=== PATIENT | male | born 1980 | race Two or more races ===

== ENCOUNTER 2020-07-19 12:31 | Emergency (ER) | payer SELFPAY ==
[~2020-07-19] VITALS: Ht 165.1 cm; Wt 68.0 kg
--- NOTE | 2020-07-19 12:40 | NUR ---
ED Nurse Note: Pt was brought in by [employer] angela 5150 hold for danger to self. He was found in his car, altered, refusing to speak. The EMS stated taht he was refusing to speak or open the door. They ended up breaking the car window to access the pt. Multiple alcohol bottles were found in the vehicle. The [employer] officer stated that he recently had lost his family and that they had 'left him.' Pt is refusing to answer RN during assesment. Pt is resting comfortably no signs of distress on RA. Vital signs stable as documented
[2020-07-19 12:41] VITALS: BP 160/112
--- NOTE | 2020-07-19 13:00 | Emergency Room Report ---
History of Present Illness General Chief Complaint: Altered Level of Consciousness Source: EMS (Irene Maier) Present Illness HPI 39-year-old male presents to the emergency department brought by police on 5150 hold for danger to self. Patient was found walking in her driveway and refuses to respond to any questions. Patient is alert HPI and ROS are limited. Patient denies pain. Patient denies medical problems. Patient is poorly cooperative. No previous visits here in the ER. No obvious signs of trauma. (Irene Maier) Allergies: Coded Allergies: No Known Allergies (Unverified , 07/19/20) COVID-19 Screening Contact w/high risk pt: No Experienced COVID-19 symptoms?: No COVID-19 Testing performed BAR ASSISTANT: No (Irene Maier) Patient History Past Medical History: see triage record Past Surgical History: none Pertinent Family History: none Reviewed Nursing Documentation: PMH: Agreed; PSxH: Agreed (Irene Maier) Nursing Documentation-PMH Past Medical History: No Stated History (Irene Maier) Review of Systems All Other Systems: negative except mentioned in HPI (Irene Maier) Physical Exam Vital Signs Date Time Temp Pulse Resp B/P (MAP) Pulse Ox O2 Delivery O2 Flow Rate FiO2 07/19/20 12:31 97.9 110 16 160/110 (127) 97 Room Air Sp02 EP Interpretation: reviewed, normal General Appearance: no apparent distress, alert, GCS 15, non-toxic Head: normocephalic, atraumatic Eyes: bilateral eye normal inspection, bilateral eye PERRL, bilateral eye other - no photophobia, ENT: hearing grossly normal, normal voice Neck: full range of motion Respiratory: chest non-tender, lungs clear, normal breath sounds, no accessory muscle use, no wheezing, speaking full sentences Cardiovascular #1: regular rate, rhythm, normal capillary refill, tachycardia Gastrointestinal: normal bowel sounds, non tender, soft Musculoskeletal: back normal, normal range of motion, gait/station normal, non- tender Neurologic: alert, motor strength/tone normal, DTRs symmetric, sensory intact, responsive, speech normal, grossly normal, no focal defects Psychiatric: judgement/insight normal Lymphatic: no adenopathy (Irene Maier) Medical Decision Making PA Attestation Dr. Serrato is my supervising Physician whom patient management has been discussed with. (Irene Maier) Diagnostic Impression: Primary Impression: Behavioral disorder ER Course 39-year-old male presents to the emergency department brought by police on 5150 hold for danger to self. Patient was found walking in her driveway and refuses to respond to any questions. Patient is alert HPI and ROS are limited. Patient denies pain. Patient denies medical problems. Patient is poorly cooperative. No previous visits here in the ER. No obvious signs of trauma. Ddx considered but are not limited to OD, SI/HI, psychosis, UTI, intoxication Vital signs: Pt. is tachycardic on arrival with an elevated BP. remaingin VS are WNL, pt. is afebrile H&PE are most consistent with behavioral/mental health issue-- Non-toxic in appearance, NAD. no obvious focal neurological defects. ORDERS: -CBC, CMP: WNL -UA: negative for infection see results attached. -UDS: POSITIVE FOR AMPHETAMINES -Salicylates and Acetaminophen: WNL -ETOH - no acute intoxication. ED INTERVENTIONS: - Pt. declines clonidine. - Pt. declines Ativan DISPOSITION: Pt. is medically cleared for psychiatric placement. Labs Test 07/19/20 12:50 07/19/20 13:00 07/19/20 13:18 White Blood Count 5.1 K/UL (4.8-10.8) Red Blood Count 5.22 M/UL (4.70-6.10) Hemoglobin 16.5 G/DL (14.2-18.0) Hematocrit 47.1 % (42.0-52.0) Mean Corpuscular Volume 90 FL (80-99) Mean Corpuscular Hemoglobin 31.6 PG (27.0-31.0) Mean Corpuscular Hemoglobin Concent 35.1 G/DL (32.0-36.0) Red Cell Distribution Width 10.4 % (11.6-14.8) Platelet Count 247 K/UL (150-450) Mean Platelet Volume 7.1 FL (6.5-10.1) Neutrophils (%) (Auto) 54.0 % (45.0-75.0) Lymphocytes (%) (Auto) 33.6 % (20.0-45.0) Monocytes (%) (Auto) 7.9 % (1.0-10.0) Eosinophils (%) (Auto) 2.0 % (0.0-3.0) Basophils (%) (Auto) 2.4 % (0.0-2.0) Sodium Level 140 MMOL/L (136-145) Potassium Level 3.4 MMOL/L (3.5-5.1) Chloride Level 104 MMOL/L (98-107) Carbon Dioxide Level 27 MMOL/L (21-32) Anion Gap 9 mmol/L (5-15) Blood Urea Nitrogen 9 mg/dL (7-18) Creatinine 0.9 MG/DL (0.55-1.30) Estimat Glomerular Filtration Rate > 60 mL/min (>60) Glucose Level 83 MG/DL (74-106) Calcium Level 8.2 MG/DL (8.5-10.1) Total Bilirubin 0.4 MG/DL (0.2-1.0) Aspartate Amino Transf (AST/SGOT) 20 U/L (15-37) Alanine Aminotransferase (ALT/SGPT) 29 U/L (12-78) Alkaline Phosphatase 70 U/L (46-116) Total Protein 7.0 G/DL (6.4-8.2) Albumin 3.5 G/DL (3.4-5.0) Globulin 3.5 g/dL Albumin/Globulin Ratio 1.0 (1.0-2.7) Salicylates Level 4.3 ug/mL (2.8-20) Acetaminophen Level < 2 MCG/ML (10-30) Serum Alcohol 18 mg/dL Urine Opiates Screen Negative (NEGATIVE) Urine Barbiturates Screen Negative (NEGATIVE) Phencyclidine (PCP) Screen Negative (NEGATIVE) Urine Amphetamines Screen Positive (NEGATIVE) Urine Benzodiazepines Screen Negative (NEGATIVE) Urine Cocaine Screen Negative (NEGATIVE) Urine Marijuana (THC) Screen Negative (NEGATIVE) POC Whole Blood Glucose 74 MG/DL (74-106) (Irene Maier) ER Course Addendum added Patient was cleared by psychiatrist Dr. Cohen and marilu to be discharged. (Merced Dobson) Last Vital Signs Date Time Temp Pulse Resp B/P (MAP) Pulse Ox O2 Delivery O2 Flow Rate FiO2 07/19/20 12:31 97.9 110 16 160/110 (127) 97 Room Air (Irene Maier) Disposition: HOME, SELF-CARE Condition: Stable Signed Out To: Dr. Rockwell (Irene Maier) Irene Maier Jul 19, 2020 13:00 Merced Dobson Jul 20, 2020 18:38
[2020-07-19 13:03] LABS: BASOPHILS % (AUTO) 2.4 % (0.0-2.0); HEMATOCRIT 47.1 % (42.0-52.0); HEMOGLOBIN 16.5 G/DL (14.2-18.0); LYMPHOCYTES % (AUTO) 33.6 % (20.0-45.0); MEAN CORPUSCULAR VOLUME 90 FL (80-99); MONOCYTES % (AUTO) 7.9 % (1.0-10.0); PLATELET COUNT 247 K/UL (150-450); RED BLOOD COUNT 5.22 M/UL (4.70-6.10); RED CELL DISTRIBUTION WIDTH 10.4 % (11.6-14.8); WHITE BLOOD COUNT 5.1 K/UL (4.8-10.8)
[2020-07-19 13:16] LABS: ANION GAP 9 mmol/L (5-15); BLOOD UREA NITROGEN 9 mg/dL (7-18); CALCIUM 8.2 MG/DL (8.5-10.1); CARBON DIOXIDE 27 MMOL/L (21-32); CHLORIDE 104 MMOL/L (98-107); CREATININE 0.9 MG/DL (0.55-1.30); POTASSIUM 3.4 MMOL/L (3.5-5.1); SODIUM 140 MMOL/L (136-145)
[2020-07-19 13:20] LABS: ALANINE AMINOTRANSFERASE 29 U/L (12-78); ALBUMIN 3.5 G/DL (3.4-5.0); ALKALINE PHOSPHATASE 70 U/L (46-116); ASPARTATE AMINO TRANSFERASE 20 U/L (15-37); BILIRUBIN,TOTAL 0.4 MG/DL (0.2-1.0)
--- NOTE | 2020-07-19 14:09 | NUR ---
ED Nurse Note: Pt refused medication. Risks explained. Pt vocalized understanding. Pt requested a different nurse.
--- NOTE | 2020-07-19 14:32 | NUR ---
ED Nurse Note: PT is refusing COVID swab
[2020-07-19] MEDS: LORazepam Inj 2mg/ml 1ml IV ONE ×2 (14:45→14:51)
--- NOTE | 2020-07-19 14:51 | NUR ---
ED Nurse Note: pt refused ativan ERMD at bedside as witness. ativan wasted per protocol in pysix with second nurse.
--- NOTE | 2020-07-19 17:20 | NUR ---
ED Nurse Note: pt was placed to treatment room bed #1, noted pt still on his pants, socks and shoes on but wears hospital gown on top. Pt on bed, awake and quiet, report received from Eva MEJIA for continuity of care. Safety precautions in placed.
--- NOTE | 2020-07-19 17:57 | NUR ---
ED Nurse Note: Patient's wallet with $444 placed in safe- # [phone] Addendum: 07/19/20 at 1758 by JOANNE Placed patient's belonging in archie #1
--- NOTE | 2020-07-19 19:18 | NUR ---
ED Nurse Note: hand off given to samira loco. discussed plan of care.
[2020-07-19 19:20] VITALS: BP 145/95
--- NOTE | 2020-07-19 19:20 | NUR ---
ED Nurse Note: Report received from ROBERTO Roque. Patient is sitting in chair. RN explained plan of care with patient and that he is on a 5150 psych hold at this time. Patient is calm. NAD noted.
--- NOTE | 2020-07-19 22:00 | NUR ---
ED Nurse Note: Patient offered toileting and PO fluids/nourishment; He refused. He is resting in room at this time. Calm and cooperative.
--- NOTE | 2020-07-20 | NUR ---
ED Nurse Note: Patient is sleeping at this time. RN bedside.
[2020-07-20 01:00] VITALS: BP 138/85
--- NOTE | 2020-07-20 03:00 | NUR ---
ED Nurse Note: Patient is sleeping at this time. Safety measures met.
[2020-07-20 06:20] VITALS: BP 140/99
--- NOTE | 2020-07-20 06:30 | NUR ---
ED Nurse Note: Patient provided with breakfast tray. He is sitting up in bed eating. Patient is calm and follows directions.
--- NOTE | 2020-07-20 07:20 | NUR ---
HAND-OFF: Report given to ROBERTO Berg.
--- NOTE | 2020-07-20 07:37 | NUR ---
ED Nurse Note: Recived report from Ruma. Pt is resting, eyes open, answers some questions. ryne SI Addendum: 07/20/20 at 1434 by RIA PT does not have IV access at this time.
[2020-07-20 08:20] VITALS: BP 132/95
--- NOTE | 2020-07-20 08:35 | NUR ---
Note shelby in EDM - 07/20/20 at 0838 by RIA ED Nurse Note: Pt placed in white gown again. All clothing in locker #3 with belongings list with clothes. $21 locked in locker in right shoe. pt is awake alert, walks with steay gait. he is calm cooperative and pleasant with staff. PT aware of 5150 educated pt on policy. Denies SI and/or HI.
--- NOTE | 2020-07-20 09:20 | NUR ---
ED Nurse Note: Pt is awake, sitting in bed. He is calm and quiet. breathing is even and unlabored.
[2020-07-20 10:35] VITALS: BP 130/90
--- NOTE | 2020-07-20 10:36 | NUR ---
ED Nurse Note: lying down on gurney with eyes closed. breathing is even and unlabored.
--- NOTE | 2020-07-20 12:52 | NUR ---
ED Nurse Note: Pt is pacing and trying to leave. Utilized a wildlife enforcement major for [place]rian. explained and educated on the meaning and uses of a 5150 hold. Explained nessesity and consequences of the 5150 hold written by [employer]. Pt verbalizes understanding. PT states that he will still try and to leave. Called for security. RN sitter at bedside
--- NOTE | 2020-07-20 13:50 | NUR ---
ELOPEMENT: Pt eloped. Sitter was unable to restrain pt and he ran out of the ER. Pt had been increasingly adamnat about leaving despite multiple conversations with RN about the nessesity of the hold.
--- NOTE | 2020-07-20 14:28 | NUR ---
ED Nurse Note: on hold with [employer] since 1350. Spoke with dumb waiter operator #[id number] and made police report regarding patient's elopement.
--- NOTE | 2020-07-20 16:14 | NUR ---
ED Nurse Note: pt came back for his belongings in the locker. Dr. Cohen assessed patient and lifted the 5150 hold. [employer] made aware. Called supervisor [employer] to retrieve rosario from the safe.
--- NOTE | 2020-07-20 16:20 | NUR ---
ED Nurse Note: pt denies SI/HI
[2020-07-20 16:30] VITALS: BP 124/85
--- NOTE | 2020-07-20 16:30 | NUR ---
ED Nurse Note: Belongings returned to patient including rosario from [employer]. Pt ambulated out of ED with steady gait. Addendum: 07/20/20 at 1759 by ANSHUL pt did not want discharge instructions
== END 2020-07-20 16:30 | disposition home or self-care (01) ==
LOC: EDBD 12:31 → EMR 13:00
DX: F91.9 Conduct disorder, unspecified (principal); F15.90 Other stimulant use, unspecified, uncomplicated
CPT/HCPCS: 36415; 80053; 80307; 82962; 85025; 99285; G0480; J8499